=== PATIENT | female | born 2000 | race African-American/Black ===

== ENCOUNTER 2021-12-03 21:54 | Inpatient (IN) | payer OTHER ==
[~2021-12-03] VITALS: Ht 147.3 cm; Wt 60.3 kg
[2021-12-03 21:59] VITALS: BP 118/62
[2021-12-03 22:51] LABS: HEMATOCRIT 22.5 % (37.0-47.0); MCH 15.3 pg (26.0-34.0); MCHC 28.1 g/dL (28.0-37.0); MCV 54.3 fL (80.0-100.0); PLATELET COUNT 656 thou/uL (150-400); RBC 4.15 mil/uL (4.20-5.00); RDW 21.5 % (10.5-14.5); WBC 9.1 thou/uL (4.0-11.0)
[2021-12-03 22:52] LABS: CALCIUM 9.3 mg/dL (8.5-10.1); POTASSIUM 3.2 mmol/L (3.5-5.1)
[2021-12-03 23:01] LABS: HEMOGLOBIN 6.3 gm/dL (12.0-15.0)
[2021-12-03 23:02] LABS: ALBUMIN 3.2 g/dL (3.4-5.0); TOTAL BILIRUBIN 0.3 mg/dL (0.2-1.0); TOTAL PROTEIN 8.3 g/dL (6.4-8.2)
[2021-12-03 23:20] LABS: ABSOLUTE NEUTROPHILS 3.5 thou/uL (1.4-8.2); NUCLEATED RBCS 3 /100WBC
[2021-12-03 23:21] LABS: ANISOCYTOSIS 2+; HYPOCHROMASIA 3+; LARGE PLATELETS FEW; MICROCYTES 3+; PLATELET ESTIMATE MARKEDLY INCREASED; POIKILOCYTOSIS 2+
[2021-12-03 23:43] LABS: APTT 21.4 Seconds (24.5-32.8); INR 1.12; PROTIME 12.1 Seconds (10.5-12.1)
[2021-12-04 05:43] LABS: CHOLESTEROL 122 mg/dL (<200); HDL CHOLESTEROL 44 mg/dL (>40); LDL CHOLESTEROL 64 mg/dL (<100); TC:HDL 2.8 Ratio (Not establshd); TRIGLYCERIDE 72 mg/dL (<150); VLDL 14 mg/dL (<40)
[2021-12-04 05:58] LABS: SERUM ASSESSMENT Clear
--- NOTE | 2021-12-04 07:49 | EKG ---
[place] [address] [facility] [address] [place] [address] ELECTROCARDIOGRAM REPORT Name: EDMAR MARTIN Room #: 170-2 ADM IN M.R.#: [id number] Admission: 12/03/21 Attend Phys: Lady Roberts Discharge: Date of : 00 Report #: [id number] [facility] ED Test Date: 2021-12-03 Test Time: 22:02:35 Pat Name: EDMAR MARTIN Department: Room: 170 Gender: F Support Service Tech: BHARATH : 2000 Requested By: Jean Claude Sepulveda Order Number: [id number] MD: Fabiano Urban Measurements Intervals [place] Rate: 118 P: 31 NV: 132 QRS: 68 QRSD: 83 T: -2 QT: 286 QTc: 401 Interpretive Statements Sinus tachycardia Borderline T abnormalities, inferior leads No previous ECG available for comparison Electronically Signed On 12-04-2021 7:49:26 ELECTRICAL MANAGER by Fabiano Urban [email or web address] <ELECTRONICALLY SIGNED> By: Fabiano Urban MD, [facility] 12/04/21 0749 01 01 Fabiano Urban MD, FACC /EPI
[2021-12-04 08:55] VITALS: BP 106/70
[2021-12-04 09:36] LABS: % SATURATION 3 % (20-39); IRON 12 ug/dL (50-170); TIBC 377 ug/dL (250-450)
[2021-12-04 11:29] VITALS: BP 110/67; BP 116/79; BP 121/78; BP 129/88
[2021-12-04 13:08] VITALS: BP 115/75; BP 127/78; BP 127/87; BP 129/88
--- NOTE | 2021-12-04 15:55 | 2DMMODE ---
[facility] [place] [address] 2 D/M-MODE ECHOCARDIOGRAM Name: EDMAR MARTIN Room #: 170-2 ADM IN M.R.#: [id number] Admission: 12/03/21 Attend Phys: Lady Roberts Discharge: Date of : 00 Report #: [id number] THIS REPORT FOR: cc: FAM - No family physician/PCP FAM - No family physician/PCP John Paul Adams MD ~ APPROVED REPORT Study performed: 12/04/2021 14:51:33 EXAM: Comprehensive 2D, Doppler, and color-flow Echocardiogram Patient Location: ER Room #: 2 Status: routine BSA: 1.52 Indications Dyspnea Chest Pain 2D Dimensions RVDd: 29.12 mm IVSd: 9.13 (7-11mm) LVOT Diam: 19.48 (18-24mm) LVDd: 40.43 mm PWd: 8.80 (7-11mm) Ascending Ao: 31.63 (22-36mm) LVDs: 27.55 (25-40mm) Left Atrium: 28.30 (27-40mm) Aortic Root: 29.11 mm IVC: 16.00 mm Volumes Left Atrial Volume (Systole) Single Plane 4CH: 31.20 mL Single Plane 2CH: 23.44 mL LA ESV Index: 20.00 mL/m2 Aortic Valve AoV Peak Julio César.: 1.28 m/s AO Peak Gr.: 6.56 mmHg LVOT Max P.58 mmHg LVOT Max V: 1.28 m/s MICHAEL Vmax: 2.98 cm2 Pulmonary Valve PV Peak Julio César.: 1.00 m/s PV Peak Gr.: 3.99 mmHg [facility] [address] [place] [address] 2 D/M-MODE ECHOCARDIOGRAM Name: EDMAR MARTIN Room #: 170-2 ADM IN [facility].#: [id number] Admission: 12/03/21 Attend Phys: Lady Subram[facility] Discharge: Date of : 00 Report #: [id number] Tricuspid Valve TR Peak Julio César.: 2.30 m/s TR Peak Gr.: 21.15 mmHg PA Pressure: 26.00 mmHg Left Ventricle The left ventricle is normal size. There is normal LV segmental wall motion. There is normal left ventricular wall thickness. Left ventricular systolic function is normal. The left ventricular ejection fraction is within the normal range. LVEF is 55-60%. The left ventricular diastolic function is normal. Right Ventricle The right ventricle is normal size. The right ventricular systolic function is normal. Atria The left atrium size is normal. The right atrium size is normal. Aortic Valve The aortic valve is normal in structure. No aortic regurgitation is present. There is no aortic valvular stenosis. Mitral Valve The mitral valve is normal in structure. There is no mitral valve regurgitation noted. No evidence of mitral valve stenosis. Tricuspid Valve The tricuspid valve is normal in structure. There is mild tricuspid regurgitation. Estimated PAP 26 mmHg. There is no pulmonary hypertension. Pulmonic Valve The pulmonary valve is normal in structure. There is no pulmonic valvular regurgitation. Great Vessels The aortic root is normal in size. IVC is normal in size and collapses >50% with inspiration. Pericardium There is no pericardial effusion. <Conclusion> The left ventricle is normal size. [facility] [place] [address] [place] [address] 2 D/M-MODE ECHOCARDIOGRAM Name: VERONICAEDMAR Room #: 170-2 ADM IN M.R.#: [id number] Admission: 12/03/21 Attend Phys: Lady Leonardo Discharge: Date of : 00 Report #: [id number] There is normal left ventricular wall thickness. LVEF is 55-60%. The right ventricle is normal size. The left atrium size is normal. The aortic valve is normal in structure. The mitral valve is normal in structure. The tricuspid valve is normal in structure. There is mild tricuspid regurgitation. Estimated PAP 26 mmHg. There is no pulmonary hypertension. The pulmonary valve is normal in structure. The aortic root is normal in size. There is no pericardial effusion. <ELECTRONICALLY SIGNED> By: John Paul Adams MD 12/04/21 1555 1555 1555 John Paul Adams MD /INF
[2021-12-04 15:56] VITALS: BP 124/82
--- NOTE | 2021-12-04 16:00 | NUR ---
PT ADMITTED RELATED TO ANEMIA, CP, HX OF ULCERATIVE COLITIS, ORAL ECCHYMOTIC. CM REVIEWED CHART AND SPOKE WITH CARE TEAM. CM CALLED AND SPOKE WITH PT VIA HER CELL PHONE THIS AFTERNOON . PT INDICATED SHE RESIDES IN AN APARTMETN WITH HER MOTHER MARISA WITH 14 STEPS TO ENTER AND NONE INSIDE. 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 PT INDICATED SHE HAD SAT IN SHOWER WHILE BATHING. PT INDICATED NO PCP. PT IS PATIENT PAY AT THIS TIME. [facility] [place] [facility]'S BEHALF. PT INDICATED SHE ISN'T SURE SHE WILL BE ABLE TO PAY TO FILL PERSCRIPTIONS UPON DC. PT INTERESTED IN [facility]. PT INDICATED SHE PLANS TO RETURN HOME ONCE MEDICALLY STABLE. PT GETTING BLOOD THIS DAY. CM FOLLOWING REGARDING DC PLANNING.
[2021-12-04 16:37] VITALS: BP 129/92
--- NOTE | 2021-12-04 17:53 | NUR ---
Assuming care of patient now. Assessment charted. Patient arrived from ED at approx. 1610. Patient voicing abdominal pain 4/10 relieved by tylenol. Patient is able to ambulate independently and will call as needed. GoLytely given to patient. Patient instructed to finish over 2hrs. GI providers rounded on patient. She is aware of colonocopy scheduled for tomorrow. Fluids infusing with no issues. Endorsed to charge nurse
[2021-12-04 20:10] VITALS: BP 127/87
--- NOTE | 2021-12-05 03:07 | NUR ---
ASSUMD PT CARE TA 190.PT WAS OBSERVED LYING ON HER BED WATCHING TV AT SHIFT CHANGE.PT DENIED PAIN SO FAR.PT HAD AN EPISODE OF N/V X1.PT WAS ABLE TO FINISH HER BOWEL PREP.PT NPO AT THIS TIME FOR COLONSCOPY IN THE AM.IVF INFUSING.PT RESTING ON HER BED AT THIS TIME.CALL LIGHT WITHIN REACH.
[2021-12-05 03:44] LABS: HEMATOCRIT 28.2 % (37.0-47.0); MCH 20.4 pg (26.0-34.0); MCHC 31.5 g/dL (28.0-37.0); RBC 4.37 mil/uL (4.20-5.00); RDW 35.2 % (10.5-14.5); WBC 9.3 thou/uL (4.0-11.0)
[2021-12-05 03:49] LABS: HEMOGLOBIN 8.9 gm/dL (12.0-15.0); MCV 64.7 fL (80.0-100.0)
[2021-12-05 04:54] LABS: CALCIUM 8.5 mg/dL (8.5-10.1); CREATININE 0.7 mg/dL (0.6-1.0); POTASSIUM 3.8 mmol/L (3.5-5.1)
[2021-12-05 05:39] VITALS: BP 121/73
[2021-12-05 07:08] LABS: GLYCOHEMOGLOBIN (HGB A1C) 5.1 % (4.8-5.6)
[2021-12-05 09:10] VITALS: BP 110/67
--- NOTE | 2021-12-05 11:03 | NUR ---
Assumed care of pt at 0700. Pt a&ox4. Denies pain. Had colonoscopy done today. Back on regular diet. Was started on prednisone PO. Pt states she cannot take prednisone because it makes her depressed. Provider notified. IV fluids discontinued. Up ad keith. Call light within reach. Will continue to monitor.
[2021-12-05 11:35] VITALS: BP 110/74
[2021-12-05 15:25] VITALS: BP 107/69
[2021-12-05 20:14] VITALS: BP 112/79
--- NOTE | 2021-12-06 00:51 | NUR ---
ASSUMED PT CARE AT 1900.PT DENIED PAIN/N/V.PT UP ADLIB IN THE ROOM TO THE TOILET.NO COMPLAINT OF BLOODY STOOLS REPORTED SO FAR.PT PROGRESSING WELL TOWARDS DC GOALS.PT RESTING ON HER BED AT THIS TIME.CALL LIGHT WITHIN REACH.
[2021-12-06 05:15] LABS: MCH 19.5 pg (26.0-34.0); MCHC 29.9 g/dL (28.0-37.0); MCV 65.3 fL (80.0-100.0); RBC 4.59 mil/uL (4.20-5.00); RDW 35.7 % (10.5-14.5); WBC 11.7 thou/uL (4.0-11.0)
[2021-12-06] MEDS ORDERED: BUDESONIDE EC3 MG PO (09:32)
[2021-12-06] MEDS ORDERED: NIFEREX TABLET1 EACH PO (09:32)
[2021-12-06] MEDS ORDERED: VITAMIN C500 MG PO (09:35)
[2021-12-06 10:38] VITALS: BP 112/79
--- NOTE | 2021-12-06 10:50 | NUR ---
ASSUMED CARE OF PT AT 0700. ALL VITAL SIGNS WNL. NO COMPLAINTS OF PAIN. PT READY TO DISCHARGE. GIVEN A.M MEDICATIONS PRESCRIBED. GIVEN HARD COPIES OF PX TO DISCHARGE HOME WITH
--- NOTE | 2021-12-06 11:12 | NUR ---
DISCHARGE NOTE: SW reviewed chart and spoke with nursing and attending physician. Pt is medically stable to discharge home today. Pt was discharged prior to SW visit. No discharge needs identified. SW is available to assist should needs arise.
--- NOTE | 2021-12-09 08:06 | PATH ---
[facility] [address] [place] [address] PATHOLOGY RPT PROCEDURE Name: ZARI MARTIN Room #: 442-P DIS IN M.R.#: [id number] Admission: 12/03/21 Date of : 00 Discharge: 12/06/21 Report #: [id number] Path Case #: [id number] [facility] Accession Number: [id number] . 01 Material submitted: . PART A: hepatic flexure - CECUM HEPATIC FLEXURE BIOPSY- HX ULCERATIVE COLITIS- R/O CMD PART B: colon - PROXIMAL TRANSVERSE TO SPLENIC FLEXURE BIOPSY= R/O CMD PART C: colon - DESCENDING COLON TO RECTUM BIOPSY- R/O CMD . 01 Clinical history: . COLONOSCOPY ANEMIA, IBD, RECTAL BLEEDING SEVERE COLITIS . 02 Diagnosis: A. Cecum and hepatic flexure, endoscopic biopsy: - Chronic active colitis with severe activity in keeping with the history of ulcerative colitis. - Negative for dysplasia, viral cytopathic effect, or malignancy. . B. Proximal transverse to splenic flexure, biopsy: - Chronic active colitis with severe activity in keeping with the history of ulcerative colitis. - Negative for dysplasia, viral cytopathic effect, or malignancy. . C. Descending colon and rectum, biopsy: - Chronic active colitis with severe activity in keeping with the history of ulcerative colitis. - Negative for dysplasia, viral cytopathic effect, or malignancy. (ANK:pit; 12/06/2021) QTP 12/06/2021 1402 Local . 02 Electronically signed: . Ayaka Kidd MD, Pathologist NPI- [id number] . 01 Gross description: . A. The specimen is received in formalin, labeled "Zari Simsburen, cecum-hepatic flexure-Hx U.C.". The specimen is additionally labeled on the requisition as, "cecum hepatic flexure biopsy-history of ulcerative colitis-rule out CMD". Received are multiple frias-white, fragments of soft tissue, ranging in size from 0.2-0.5 cm, in greatest dimension. The specimen is entirely submitted in cassette A1. . B. The specimen is received in formalin, labeled "Elveryessenia Dick, proximal transverse to splenic flexure biopsy". The specimen is [address] [address] PATHOLOGY RPT PROCEDURE Name: ZARI MARTIN Room #: 442-P DIS IN M.R.#: [id number] Admission: 12/03/21 Date of : 00 Discharge: 12/06/21 Report #: [id number] Path Case #: [id number] additionally labeled on the requisition as, "proximal transverse to splenic flexure biopsy-rule out CMD". Received are 4, frias-white, fragments of soft tissue, ranging in size from 0.3-0.5 cm, in greatest dimension. The specimen is entirely submitted in cassette B1. . C. The specimen is received in formalin, labeled "Zari Martin, descending colon to rectum biopsy". The specimen is additionally labeled on the requisition as, "descending colon to rectum biopsy-rule out CMD". Received are multiple, frias-white, fragments of soft tissue, ranging in size from 0.2-0.4 cm, in greatest dimension. The specimen is entirely submitted in cassette C1. ([facility]; 12/05/2021) [facility] 12/05/2021 1734 Local . 02 Pathologist provided ICD-10: K52.9, Z12.11, K58.8, K92.1 . 02 CPT . 912501, 971358, 191914 Specimen Comment: A courtesy copy of this report has been sent to [phone], [phone] Specimen Comment: [id number] Specimen Comment: Report sent to / DR MITCHELL Specimen Comment: A duplicate report has been generated due to demographic updates. Performed at: [address], [place], [place] [id number] MD Saeed Love MD Phone: [phone] Performed at: [address] [id number] MD Ayaka Kidd MD Phone: [phone]
== END 2021-12-06 10:52 | disposition home or self-care (01) | DRG 386 ==
LOC: ER 21:54 → EROBS 23:40 → 4S 12-04 15:58
PROVIDERS: Emergency Medicine; Nurse Practitioner Family; ADMIT Hospitalist; ATTEND Hospitalist
PROC: 30233N1 Transfusion of Nonautologous Red Blood Cells into Peripheral Vein, Percutaneous Approach (ICD-10-PCS; principal; 2021-12-04)
PROC: 0DBH8ZX Excision of Cecum, Via Natural or Artificial Opening Endoscopic, Diagnostic (ICD-10-PCS; 2021-12-05)
PROC: 0DBM8ZX Excision of Descending Colon, Via Natural or Artificial Opening Endoscopic, Diagnostic (ICD-10-PCS; 2021-12-05)
PROC: 0DBL8ZX Excision of Transverse Colon, Via Natural or Artificial Opening Endoscopic, Diagnostic (ICD-10-PCS; 2021-12-05)
DX: K51.90 Ulcerative colitis, unspecified, without complications (principal); K92.2 Gastrointestinal hemorrhage, unspecified; E44.0 Moderate protein-calorie malnutrition; D62 Acute posthemorrhagic anemia; I10 Essential (primary) hypertension; D75.839 Thrombocytosis, unspecified; E87.6 Hypokalemia; N92.0 Excessive and frequent menstruation with regular cycle; Z68.27 Body mass index [BMI] 27.0-27.9, adult; Z28.21 Immunization not carried out because of patient refusal; Z20.822 Contact with and (suspected) exposure to COVID-19
CPT/HCPCS: 10100; 62110; 62900; 70005